=== PATIENT | male | born 1975 | race Caucasian/White ===

== ENCOUNTER 2018-12-12 15:20 | Emergency (ER) | payer OTHER ==
[~2018-12-12] VITALS: Ht 177.8 cm; Wt 117.9 kg
[2018-12-12] MEDS ORDERED: TRAZ100 PO (16:13)
[2018-12-12] MEDS ORDERED: DULO60 PO (16:13)
[2018-12-12 16:28] LABS: Source, Urine Clean Catch
[2018-12-12 16:31] LABS: Appearance, Urine Clear (Clear); Bilirubin, Urine Neg (Neg); Blood, Urine 1+ (Neg); Color, Urine Yellow (P-Yellow); Glucose Qualitative, Urine Neg (Neg); Ketones, Urine Neg (Neg); Leukocyte Esterase, Urine 1+ (Neg); Nitrite, Urine Neg (Neg); Protein, Urine 1+ (Neg); Specific Gravity, Urine 1.025 (1.003-1.022); Urobilinogen, Urine 1+ (Normal)
[2018-12-12 16:38] LABS: Bacteria Few /hpf; Red Blood Cells, Urine 0-2 /hpf (0-2); Squamous Epithelial Cells Rare /hpf (Few)
[2018-12-12 17:01] LABS: BASOPHILS ABSOLUTE AUTO 0.07 K/mm3 (0.00-0.23); BASOPHILS PERCENT AUTO 1 % (0-2); EOSINOPHILS PERCENT AUTO 2 % (0-6); Hematocrit 48.5 % (37.0-53.0); Hemoglobin 16.7 g/dL (13.5-17.5); IMMATURE GRAN ABSOLUTE AUTO 0.12 K/mm3 (0.00-0.10); IMMATURE GRAN PERCENT AUTO 1 % (0-1); LYMPHOCYTES ABSOLUTE AUTO 2.71 K/mm3 (0.84-5.20); LYMPHOCYTES PERCENT AUTO 18 % (21-46); MONOCYTES ABSOLUTE AUTO 0.95 K/mm3 (0.16-1.47); MONOCYTES PERCENT AUTO 6 % (4-13); Mean Corpuscular HGB 29.9 pg (26.0-34.0); Mean Corpuscular HGB Conc 34.4 g/dL (31.5-36.5); Mean Corpuscular Volume 87 fL (80-100); Mean Platelet Volume 9.6 fL (9.1-12.4); NEUTROPHILS ABSOLUTE AUTO 11.35 K/mm3 (1.96-9.15); NEUTROPHILS PERCENT AUTO 73 % (41-73); Platelet Count 362 K/mm3 (150-400); RDW Coefficient Variation 12.5 % (11.7-14.2); RDW Standard Deviation 39.6 fL (35.1-46.3); Red Blood Cell Count 5.59 M/mm3 (4.30-5.90)
[2018-12-12 17:20] LABS: Alanine Aminotransfer (ALT/SGP 77 U/L (12-78); Albumin, Blood 4.3 g/dL (3.4-5.0); Albumin/Globulin Ratio 1.1 (0.8-1.8); Alk Phos 102 U/L (50-136); Anion Gap 9 mmol/L (6-16); Aspartate Aminotrans (AST/SGOT 23 U/L (12-37); Bilirubin, Total 0.5 mg/dL (0.1-1.0); Blood Urea Nitrogen 22 mg/dL (8-24); Bun/Creatinine Ratio 26.3 (12.0-20.0); CO2, Blood 23 mmol/L (21-32); Calcium, Blood 9.3 mg/dL (8.5-10.1); Chloride, Blood 106 mmol/L (98-108); Creatinine, Blood 0.84 mg/dL (0.60-1.20); Globulin, Blood 3.8 g/dL (2.2-4.0); Glomerular Filtration Rate >60 (60-); Glucose, Blood 130 mg/dL (70-99); Potassium, Blood 3.8 mmol/L (3.5-5.5); Sodium, Blood 138 mmol/L (136-145); Total Protein, Blood 8.1 g/dL (6.4-8.2)
[2018-12-12] MEDS ORDERED: Neurontin 300300 MG PO (17:52)
[2018-12-12] MEDS ORDERED: Percocet 5-3251 EACH PO (17:52)
== END 2018-12-12 17:57 | disposition home or self-care (01) ==
LOC: ER 15:20
PROVIDERS: Physician Assistant
DX: M72.2 Plantar fascial fibromatosis (principal); M79.2 Neuralgia and neuritis, unspecified; Z79.899 Other long term (current) drug therapy
CPT/HCPCS: 80053; 81001; 82947; 85025; 87086; 99283

== ENCOUNTER 2018-12-17 16:59 | Emergency (ER) | payer OTHER ==
[~2018-12-17] VITALS: Ht 177.8 cm; Wt 122.5 kg
[~2018-12-17 16:59] MED LIST: DULO60 PO; Neurontin 300300 MG PO; Percocet 5-3251 EACH PO; TRAZ100 PO
[2018-12-17 17:46] LABS: Source, Urine Clean Catch
[2018-12-17 17:51] LABS: Bilirubin, Urine Neg (Neg); Blood, Urine 1+ (Neg); Glucose Qualitative, Urine Neg (Neg); Ketones, Urine Neg (Neg); Leukocyte Esterase, Urine Neg (Neg); Nitrite, Urine Neg (Neg); Protein, Urine Neg (Neg); Specific Gravity, Urine 1.025 (1.003-1.022); Urobilinogen, Urine NORM (Normal)
[2018-12-17 18:04] LABS: Appearance, Urine Clear (Clear); Color, Urine Yellow (P-Yellow)
[2018-12-17 18:06] LABS: Bacteria Rare /hpf; Squamous Epithelial Cells Rare /hpf (Few); White Blood Cells, Urine 0-2 /hpf (0-5)
== END 2018-12-17 20:52 | disposition left against medical advice (07) ==
LOC: ER 16:59
PROVIDERS: Physician Assistant
DX: M79.672 Pain in left foot (principal); M79.671 Pain in right foot; Z53.21 Procedure and treatment not carried out due to patient leaving prior to being seen by health care provider
CPT/HCPCS: 81001; 82947; 99283

== ENCOUNTER → 2018-12-23 | Outpatient (CLI) | payer OTHER ==
[~2018-12-23] MED LIST changes: +GABA300 PO; +HYDR1TAB94 PO; +LISI20 PO; +PRINIVIL10 MG PO
== END | disposition home or self-care (01) ==
LOC: LAB EV 19:05 → LAB SHORT 19:05
DX: I10 Essential (primary) hypertension (principal)
CPT/HCPCS: 85651

== ENCOUNTER 2019-02-13 09:34 | Observation (INO) | payer OTHER ==
[~2019-02-13] VITALS: Ht 177.8 cm; Wt 127.0 kg
[~2019-02-13 09:34] MED LIST changes: -GABA300 PO; -HYDR1TAB94 PO; -LISI20 PO; -PRINIVIL10 MG PO
[2019-02-13 10:37] LABS: BASOPHILS ABSOLUTE AUTO 0.05 K/mm3 (0.00-0.23); BASOPHILS PERCENT AUTO 0 % (0-2); EOSINOPHILS PERCENT AUTO 2 % (0-6); Hematocrit 47.2 % (37.0-53.0); Hemoglobin 16.2 g/dL (13.5-17.5); IMMATURE GRAN ABSOLUTE AUTO 0.08 K/mm3 (0.00-0.10); IMMATURE GRAN PERCENT AUTO 1 % (0-1); LYMPHOCYTES ABSOLUTE AUTO 2.73 K/mm3 (0.84-5.20); LYMPHOCYTES PERCENT AUTO 23 % (21-46); MONOCYTES ABSOLUTE AUTO 0.81 K/mm3 (0.16-1.47); MONOCYTES PERCENT AUTO 7 % (4-13); Mean Corpuscular HGB 30.2 pg (26.0-34.0); Mean Corpuscular HGB Conc 34.3 g/dL (31.5-36.5); Mean Corpuscular Volume 88 fL (80-100); Mean Platelet Volume 9.7 fL (9.1-12.4); NEUTROPHILS ABSOLUTE AUTO 7.85 K/mm3 (1.96-9.15); NEUTROPHILS PERCENT AUTO 67 % (41-73); Platelet Count 277 K/mm3 (150-400); RDW Standard Deviation 41.6 fL (35.1-46.3); Red Blood Cell Count 5.37 M/mm3 (4.30-5.90); White Blood Cell Count 11.72 K/mm3 (4.00-11.30)
[2019-02-13 10:51] LABS: Alanine Aminotransfer (ALT/SGP 74 U/L (12-78); Albumin, Blood 3.9 g/dL (3.4-5.0); Alk Phos 103 U/L (50-136); Anion Gap 5 mmol/L (6-16); Aspartate Aminotrans (AST/SGOT 39 U/L (12-37); Bilirubin, Total 0.7 mg/dL (0.1-1.0); Blood Urea Nitrogen 16 mg/dL (8-24); Bun/Creatinine Ratio 18.1 (12.0-20.0); CO2, Blood 22 mmol/L (21-32); Calcium, Blood 9.2 mg/dL (8.5-10.1); Chloride, Blood 107 mmol/L (98-108); Creatinine, Blood 0.88 mg/dL (0.60-1.20); Glomerular Filtration Rate >60 (60-); Glucose, Blood 110 mg/dL (70-99); Potassium, Blood 4.2 mmol/L (3.5-5.5); Sodium, Blood 134 mmol/L (136-145); Total Protein, Blood 7.9 g/dL (6.4-8.2)
[2019-02-13] MEDS ORDERED: PRINIVIL10 MG PO (11:21)
[2019-02-13] MEDS ORDERED: GABA300 PO (12:39)
[2019-02-13] MEDS ORDERED: LISI20 PO (12:39)
--- NOTE | 2019-02-13 15:58 | NUR ---
SHIFT SUMMARY NEW ER ADMIT THIS SHIFT WITH PERIRECTAL ABSCESS. MILD REDNESS AND SWELLING, BUT NO DRAINAGE NOTED AT THIS TIME. MEDICATING WITH 2 NORCO AND 1MG IV DILAUDID FOR PAIN. NPO AFTER MIDNIGHT FOR SURGERY TOMORROW. INDEP IN ROOM. SIG OTHER AT BEDSIDE FOR SUPPORT. PT USES CALL LIGHT APPROPRIATELY.
--- NOTE | 2019-02-14 04:19 | NUR ---
PATIENT CONTINUES TO HAVE SEVERE PAIN IN PERIRECTAL AREA. PAIN MEDICATIONS HAVE RESULTED IN RELIEF FOR 45-60 MINS AT A TIME. HE IS ABLE TO POSITION HISSELF TO COMFORT, EVEN PRONE WITH PILLOWS TO SUPPORT. HE HAS BEEN NPO SINCE MIDNIGHT FOR AN EXPECTED SURGICAL PROCEDURE THIS MORNING.
--- NOTE | 2019-02-14 10:40 | NUR ---
POST OP S/P I&D OF TONE RECTAL ABSCESS. POST OP VS IN PROGRESS AND STABLE. PT REPORTS TOLERABLE PAIN AT 2/10. PT REPORTS MOSTLY TENDER WHEN PRESSURE APPLIED OR WITH CERTAIN MOVEMENTS. GAUZE IN PLACE AND APPEARS CDI. PT WAS ABLE TO STAND AND GET INTO BED FROM [facility]NEY INDEPENDENTLY. ENCOURAGING TO COUGH AND DEEP BREATHE. CALL LIGHT WITHIN REACH.
[2019-02-14] MEDS ORDERED: HYDR1TAB94 PO (10:58)
--- NOTE | 2019-02-14 12:46 | NUR ---
DISCHARGE PT EDUCATED ON AND RECEIVED PRINTED DC INSTRUCTIONS AND VERB AN UNDERSTANDING. HARD RX FOR NORCO GIVEN TO PT. IV DC'D. PT PAIN MANAGED WITH 1 NORCO. PT LULA REG DIET. UP INDEPENDENT IN ROOM. VOIDING. VSS. PT LEFT WITH ALL PERSONAL BELONGINGS.
== END 2019-02-14 12:44 | disposition home or self-care (01) ==
LOC: ER 09:34 → SURS 09:35
PROVIDERS: Physician Assistant; ADMIT Surgery
PROC: 0D9P0ZZ Drainage of Rectum, Open Approach (ICD-10-PCS; principal; 2019-02-14 09:00)
DX: K61.1 Rectal abscess (principal); I10 Essential (primary) hypertension; E66.01 Morbid (severe) obesity due to excess calories; F32.9 Major depressive disorder, single episode, unspecified; Z68.41 Body mass index [BMI] 40.0-44.9, adult
CPT/HCPCS: 36415; 72193; 80053; 83605; 85025; 87081; 96365-59; 96375; 96375-59; 96376; 99284-25; A9270-GY; G0378; J1100; J1170; J1885; J2270; J2370; J2405; J2704; J3010; Q9967

== ENCOUNTER 2019-07-29 15:42 | Inpatient (IN) | payer BC ==
[~2019-07-29] VITALS: Ht 177.8 cm; Wt 124.7 kg
[~2019-07-29 15:42] MED LIST changes: +GABA300 PO; +HYDR1TAB94 PO; +LISI20 PO; +PRINIVIL10 MG PO
[2019-07-29 17:03] LABS: BASOPHILS ABSOLUTE AUTO 0.05 K/mm3 (0.00-0.23); BASOPHILS PERCENT AUTO 0 % (0-2); EOSINOPHILS ABSOLUTE AUTO 0.16 K/mm3 (0.00-0.68); EOSINOPHILS PERCENT AUTO 1 % (0-6); Hematocrit 45.5 % (37.0-53.0); Hemoglobin 15.9 g/dL (13.5-17.5); IMMATURE GRAN PERCENT AUTO 1 % (0-1); LYMPHOCYTES ABSOLUTE AUTO 2.22 K/mm3 (0.84-5.20); LYMPHOCYTES PERCENT AUTO 13 % (21-46); MONOCYTES ABSOLUTE AUTO 1.13 K/mm3 (0.16-1.47); MONOCYTES PERCENT AUTO 7 % (4-13); Mean Corpuscular HGB 30.4 pg (26.0-34.0); Mean Corpuscular HGB Conc 34.9 g/dL (31.5-36.5); Mean Corpuscular Volume 87 fL (80-100); Mean Platelet Volume 9.6 fL (9.1-12.4); NEUTROPHILS ABSOLUTE AUTO 13.61 K/mm3 (1.96-9.15); NEUTROPHILS PERCENT AUTO 79 % (41-73); Platelet Count 321 K/mm3 (150-400); RDW Coefficient Variation 12.2 % (11.7-14.2); Red Blood Cell Count 5.23 M/mm3 (4.30-5.90); White Blood Cell Count 17.27 K/mm3 (4.00-11.30)
[2019-07-29 17:21] LABS: Alanine Aminotransfer (ALT/SGP 71 U/L (12-78); Albumin, Blood 4.4 g/dL (3.4-5.0); Albumin/Globulin Ratio 1.1 (0.8-1.8); Alk Phos 105 U/L (50-136); Anion Gap 6 mmol/L (6-16); Aspartate Aminotrans (AST/SGOT 31 U/L (12-37); Blood Urea Nitrogen 17 mg/dL (8-24); Bun/Creatinine Ratio 21.3 (12.0-20.0); CO2, Blood 24 mmol/L (21-32); Calcium, Blood 9.3 mg/dL (8.5-10.1); Chloride, Blood 105 mmol/L (98-108); Glomerular Filtration Rate >60 (60-); Glucose, Blood 102 mg/dL (70-99); Potassium, Blood 3.9 mmol/L (3.5-5.5); Sodium, Blood 135 mmol/L (136-145); Total Protein, Blood 8.4 g/dL (6.4-8.2)
[2019-07-29] MEDS ORDERED: Nicoderm Cq1 EACH TOP (22:27)
--- NOTE | 2019-07-30 05:38 | NUR ---
PT VSS T/O NIGHT. PT REP INCREASING PAIN THIS AM, NOTIFIED; PT REP BETTER RELIEF AFTER NEW ORDERS. NO DRNG NOTED FROM [facility], SITE RED/SWOLLEN. IVF AND ABX CONT PER ORDERS. PT NPO POST MIDNIGHT FOR PLAN FOR OR TODAY. PT INDEP IN ROOM IS USING CALL LIGHT FOR ASSISTANCE, WILL CONT TO MONITOR UNTIL REP GIVEN TO ONCOMING RN.
--- NOTE | 2019-07-30 07:01 | NUR ---
pt awake stated he wants to trial the 2 mg iv dilaudid this time for the pain npo for poss surg today
--- NOTE | 2019-07-30 07:43 | NUR ---
dr kebede by to see pt sched for surg this afternoon
--- NOTE | 2019-07-30 08:40 | NUR ---
pt having bleeding from perirectal abcess helped pt get cleaned up and placed lg renée pad and underware
--- NOTE | 2019-07-30 12:56 | NUR ---
History, Chart, Medications and Allergies reviewed before start of procedure. Patient confirms NPO status and agrees with scheduled surgery. Lungs clear T/O to Auscultation. Pre-Op teaching done. Pt verbalizes understanding.
--- NOTE | 2019-07-30 14:55 | NUR ---
PT ARRIVED BACK TO ROOM FROM PACU PT OOB FROM [facility] TO BED PT STATED PAIN IS 5-6/10 PT DENIES NAUSEA WILL GIVE FOOD WITH PO MEDS PT HAS BULKY DRESSING OVER PACKING SCANT AMT OF LIGHT PEACH COLORED DRAINAGE
--- NOTE | 2019-07-30 17:30 | NUR ---
PT EATING DINNER VISITING WITH S/O STATED NO NAUSEA WITH FOOD
--- NOTE | 2019-07-30 18:36 | NUR ---
PO PAIN MEDS GIVEN PAIN 01/06 2 TAB PO OXY GIVEN PT STATED HE WANTS TO LAY DOWN AND TRY TO SLEEP
--- NOTE | 2019-07-31 04:52 | NUR ---
SHIFT SUMMARY: LESTER HAS RESTED INTERMITTENTLY DURING THE NIGHT. HE REPORTED THAT THE PAIN WAS KEEPING HIM AWAKE. AFTER RECEIVING 1 MG OF DILAUDID, HE STATED THAT HE WAS ABLE TO SLEEP. HE IS INDEPENDENT IN THE ROOM. IV PATENT. HE IS TOLERATING PO INTAKE VERY WELL. INCISION DRAINING SMALL-MODERATE AMTS SS FLUID. SUPPLIES PROVIDED TO LESTER, HE DENIES NEED FOR ANY ASSISTANCE WITH HIS WOUND. HE IS HOPING TO DISCHARGE HOME TODAY. HE IS ABLE TO MAKE HIS NEEDS KNOWN. HE IS RESTING COMFORTABLY IN BED WITH HIS CALL LIGHT IN REACH. HE USES HIS CALL LIGHT APPROPRIATELY.
[2019-07-31] MEDS ORDERED: HYDMOR2 PO (13:45)
--- NOTE | 2019-07-31 13:50 | NUR ---
DISCHARGE: PT DC TO HOME AT THIS TIME WITH SIGNIFICANT OTHER. IV DC'D WNL. PT VERBALIZED UNDERSTANDING OF INSTRUCTIONS, MEDICATIONS AND FOLLOW UP. SCRIPT GIVEN. PT LEFT VIA WHEELCHAIR TO CAR WITH BELONGINGS.
== END 2019-07-31 13:57 | disposition home or self-care (01) | DRG 349 ==
LOC: ER 15:42 → SURS 15:43
PROVIDERS: Physician Assistant; ADMIT Surgery
PROC: 0D5 Gastrointestinal System, Destruction (ICD-10-PCS; principal; 2019-07-30 12:15)
DX: K60.3 Anal fistula (principal); Z87.891 Personal history of nicotine dependence; L40.9 Psoriasis, unspecified; I10 Essential (primary) hypertension
CPT/HCPCS: 36415; 74177; 80053; 83605; 85025; 87040; 87070; 87075; 87205; 96361; 96365-59; 96375-59; 96376; 99285-25; J1100; J1170; J1885; J2250; J2405; J2543; J2704; J3010; J7030; J7120; Q9967

== ENCOUNTER 2024-11-10 06:41 | Day surgery (SDC) | payer OTHER, BC ==
[~2024-11-10] VITALS: Ht 177.8 cm; Wt 72.2 kg
[~2024-11-10 06:41] MED LIST changes: +HYDMOR2 PO; +NAPR500 PO; +Nicoderm Cq1 EACH TOP; +TRAM50 PO
[2024-11-10] MEDS ORDERED: CeFAZolin Sodium 2,000 MG VIAL ONE (07:03)
[2024-11-10] MEDS ORDERED: EPINEPhrine HCl 1 MG/ML 1ML Amp ONE (07:29)
[2024-11-10] MEDS ORDERED: Lidocaine 2%-Epineph 1:100000 20 ML MDV ONE (07:30)
[2024-11-10] MEDS ORDERED: Lactated Ringer's 1,000 ML IV ONE ×2 (07:48→10:41)
[2024-11-10] MEDS ORDERED: propofoL 20 ML IV ONE (08:01)
[2024-11-10] MEDS ORDERED: FentaNYL Citrate 50 MCG/ML 2 ML Injection ONE (08:01)
[2024-11-10] MEDS ORDERED: Midazolam HCl 1MG / ML 2ML Vial ONE (08:01)
--- NOTE | 2024-11-10 08:05 | NUR ---
11/10/24 0805 KELSY RAMIREZ POST OP INSTRUCTIONS PROVIDED, PT DENIES QUESTIONS. PT RESTING ON GURNEY, RAILS UP, BRAKES LOCKED, CALL LIGHT IN REACH.
[2024-11-10] MEDS ORDERED: Dexamethasone Sod Phos 10 MG/ML 1ML VIAL ONE (08:34)
[2024-11-10] MEDS ORDERED: Phenylephrine HCl 100 MCG/ML-NS 10MLSYR (1MG/10ML) ONE (08:34)
[2024-11-10] MEDS ORDERED: Ondansetron HCl 2 MG / ML 2ML Vial ONE (08:40)
[2024-11-10] MEDS ORDERED: Ketorolac Tromethamine 30mg Vial ONE (09:14)
[2024-11-10] MEDS ORDERED: HYDROmorphone HCl/Pf 1MG SYR ONE (09:50)
[2024-11-10 10:09] VITALS: BP 136/88
[2024-11-10] MEDS ORDERED: OxyCODONE HCL 5 MG TAB ONE (10:17)
== END 2024-11-10 10:31 | disposition home or self-care (01) ==
LOC: ORSCSDS 06:41
PROVIDERS: Orthopaedic Surgery
PROC: 0SBD4ZZ Excision of Left Knee Joint, Percutaneous Endoscopic Approach (ICD-10-PCS; principal; 2024-11-10 08:30)
DX: S83.212A Bucket-handle tear of medial meniscus, current injury, left knee, initial encounter (principal); X50.1XXA Overexertion from prolonged static or awkward postures, initial encounter; Y93.9 Activity, unspecified; F41.9 Anxiety disorder, unspecified; F32.A Depression, unspecified; G47.33 Obstructive sleep apnea (adult) (pediatric); Z87.891 Personal history of nicotine dependence
CPT/HCPCS: A9270; J0171; J0690; J1100; J1171; J1885; J2250; J2371; J2405; J2704; J3010; J7120